=== PATIENT | female | born 1940 | race Caucasian/White ===

== ENCOUNTER 2020-06-24 12:06 | Emergency (ER) | payer MEDICARE ==
[~2020-06-24] VITALS: Ht 162.6 cm; Wt 68.0 kg
[2020-06-24] MEDS ORDERED: ONDANSETRON HCL INJ 2MG/ML 2ML 2 MG/ML VIAL IV NR (12:48)
[2020-06-24] MEDS ORDERED: FENTANYL CITRATE/PF 100MCG/2 ML INJ IV NR (13:00)
[2020-06-24 13:26] LABS: CLARITY,URINE CLEAR (CLEAR); COLOR,URINE YELLOW (YELLOW); KETONES,URINE NEGATIVE (NEGATIVE); LEUKOCYTE ESTERASE ,URINE NEGATIVE (NEGATIVE); NITRITE,URINE NEGATIVE (NEGATIVE); PROTEIN,URINE DIPSTICK TRACE (NEGATIVE); URINE UROBILINOGEN 0.2 mg/dL (0.2 - 1)
[2020-06-24 13:39] LABS: BASOPHILS # (AUTO) 0.1 (0.0-0.1); BASOPHILS % 0.8 % (0.0-1.0); EOSINOPHILS # (AUTO) 0.4 (0.0-0.4); EOSINOPHILS % 4.4 % (0.0-6.0); HEMATOCRIT 36.4 % (34.2-44.1); HEMOGLOBIN 11.5 g/dL (12.0-16.0); LYMPHOCYTES # (AUTO) 1.7 (1.0-3.2); LYMPHOCYTES % 17.7 % (18.0-39.1); MEAN CORPUSCULAR HEMOGLOBIN 26.9 pg (28-32); MEAN CORPUSCULAR HGB CONC 31.6 g/dL (31-35); MEAN CORPUSCULAR VOLUME 85.2 fL (81-99); MONOCYTES # (AUTO) 0.8 (0.2-0.8); MONOCYTES % 7.9 % (4.4-11.3); NEUTROPHILS # (AUTO) 6.6 (2.1-6.9); NEUTROPHILS % 68.8 % (38.7-80.0); PLATELET COUNT 281 x10e3/uL (140-360); RED BLOOD COUNT 4.27 x10e6/uL (3.6-5.1); RED CELL DISTRIBUTION WIDTH 23.9 % (11.7-14.4)
[2020-06-24 13:42] LABS: BACTERIA,URINE RARE /HPF; RBC,URINE 0-5 /HPF (0-5); WBC,URINE (MAN) 0-5 /HPF (0-5)
[2020-06-24 13:43] LABS: MUCUS,URINE FEW (RARE)
[2020-06-24 14:02] LABS: ALBUMIN/GLOBULIN RATIO 1.1 (0.8-2.0); ANION GAP 14.8 mmol/L (8-16); CALCIUM 9.1 mg/dL (8.4-10.2); CREATININE, SERUM 1.04 mg/dL (0.57-1.11); POTASSIUM 3.8 mmol/L (3.5-5.1)
[2020-06-24] MEDS ORDERED: IOPAMIDOL 370 MG/ML 200 ML INFUS..BTL INJ ONE (15:59)
[2020-06-24] MEDS ORDERED: SODIUM CHLORIDE 0.9% 50ML 50 ML ONE (15:59)
[2020-06-24] MEDS ORDERED: ULTRAM50 MG PO (16:07)
[2020-06-24 16:08] VITALS: BP 168/58
== END 2020-06-24 16:23 | disposition home or self-care (01) ==
LOC: ER 12:48
DX: R10.31 Right lower quadrant pain (principal); K44.9 Diaphragmatic hernia without obstruction or gangrene; I10 Essential (primary) hypertension; E11.9 Type 2 diabetes mellitus without complications; I48.91 Unspecified atrial fibrillation; J45.909 Unspecified asthma, uncomplicated
CPT/HCPCS: 36415; 74177; 80053; 81001; 83690; 85025; 93005; 99284; J2405; J3010; Q9967

== ENCOUNTER → 2020-09-02 | Day surgery (SDC) | payer MEDICARE ==
[2020-08-28 14:42] LABS: BASOPHILS # (AUTO) 0.1 (0.0-0.1); EOSINOPHILS # (AUTO) 0.6 (0.0-0.4); EOSINOPHILS % 6.5 % (0.0-6.0); HEMATOCRIT 38.7 % (34.2-44.1); HEMOGLOBIN 12.3 g/dL (12.0-16.0); LYMPHOCYTES # (AUTO) 2.3 (1.0-3.2); LYMPHOCYTES % 24.8 % (18.0-39.1); MEAN CORPUSCULAR HEMOGLOBIN 30.3 pg (28-32); MEAN CORPUSCULAR HGB CONC 31.8 g/dL (31-35); MEAN CORPUSCULAR VOLUME 95.3 fL (81-99); MONOCYTES # (AUTO) 0.6 (0.2-0.8); MONOCYTES % 6.7 % (4.4-11.3); NEUTROPHILS # (AUTO) 5.6 (2.1-6.9); NEUTROPHILS % 60.7 % (38.7-80.0); PLATELET COUNT 292 x10e3/uL (140-360); RED BLOOD COUNT 4.06 x10e6/uL (3.6-5.1); RED CELL DISTRIBUTION WIDTH 13.7 % (11.7-14.4)
[2020-08-28 14:52] LABS: INR 0.9; PROTHROMBIN TIME 12.7 seconds (11.9-14.5)
[2020-08-28 14:53] LABS: PARTIAL THROMBOPLASTIN TIME 30.8 seconds (23.8-35.5)
[2020-08-28 15:00] LABS: ALBUMIN/GLOBULIN RATIO 1.1 (0.8-2.0); ANION GAP 15.3 mmol/L (8-16); CHOL/HDL RATIO 3.5 (3.0-3.6); CREATININE, SERUM 1.01 mg/dL (0.57-1.11); POTASSIUM 4.3 mmol/L (3.5-5.1)
[~2020-09-02] VITALS: Ht 162.6 cm; Wt 66.2 kg
[~2020-09-02] MED LIST: BENZOCAINE 20% SPR 60 ML CAN ONE; FENTANYL CITRATE/PF 100MCG/2 ML INJ ONE; LEVOTHYROXINE50 MCG PO; LISINOPRIL10 MG PO; METOPROLOL SUCC50 MG PO; MIDAZOLAM HCL 2 MG/2 ML VIAL ONE; OMEPRAZOLE40 MG PO; PRAMIPEXOLE D0.25 MG PO; SODIUM CHLORIDE 0.9% 1000ML 1,000 ML ONE; ULTRAM50 MG PO
[2020-09-02 06:55] VITALS: BP 199/65
[2020-09-02 08:55] VITALS: BP 147/43
[2020-09-02 09:10] VITALS: BP 163/56
[2020-09-02 09:25] VITALS: BP 158/66
[2020-09-02 09:40] VITALS: BP 166/61
== END | disposition home or self-care (01) ==
LOC: OR 06:27
PROVIDERS: ATTEND Internal Medicine Cardiovascular Disease
DX: I48.0 Paroxysmal atrial fibrillation (principal); I34.0 Nonrheumatic mitral (valve) insufficiency; I07.1 Rheumatic tricuspid insufficiency; I70.0 Atherosclerosis of aorta; I11.0 Hypertensive heart disease with heart failure; I50.9 Heart failure, unspecified; J45.909 Unspecified asthma, uncomplicated; Z88.0 Allergy status to penicillin; Z88.2 Allergy status to sulfonamides; Z87.891 Personal history of nicotine dependence; Z82.49 Family history of ischemic heart disease and other diseases of the circulatory system; Z82.3 Family history of stroke
CPT/HCPCS: 36415; 80053; 80061; 85025; 85610; 85730; 93312; 93320; 93325; J2250; J3010; J7030; 93307